=== PATIENT | male | born 1975 | race African-American/Black ===

== ENCOUNTER 2024-04-29 11:52 | Emergency (ER) | payer OTHER ==
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
[2024-04-29 12:47] VITALS: BP 134/105; TEMP 97.3; O2SAT 99
== END 2024-04-29 12:33 | disposition home or self-care (01) ==
LOC: ER 11:52
DX: Z04.1 Encounter for examination and observation following transport accident (principal); G35 Multiple sclerosis; V43.52XA Car driver injured in collision with other type car in traffic accident, initial encounter; W22.11XA Striking against or struck by driver side automobile airbag, initial encounter; Y93.89 Activity, other specified; Y92.488 Other paved roadways as the place of occurrence of the external cause; Z71.1 Person with feared health complaint in whom no diagnosis is made
CPT/HCPCS: 99285